=== PATIENT | female | born 1965 | race Caucasian/White ===

== ENCOUNTER → 2016-07-07 | Outpatient (CLI) | payer BC | LOC: PREOP 05:38 | PROVIDERS: ATTEND Internal Medicine | DX: Z01.818 Encounter for other preprocedural examination (principal); Z12.11 Encounter for screening for malignant neoplasm of colon ==

== ENCOUNTER 2016-07-09 07:08 | Day surgery (SDC) | payer BC ==
[~2016-07-09] VITALS: Ht 160 cm; Wt 59.9 kg
--- NOTE | 2016-07-09 07:25 | HISTORY AND PHYSICAL ---
DATE OF ADMISSION: 07/09/2016 DICTATING PHYSICIAN: Dr. Myers COLONOSCOPY HISTORY AND PHYSICAL: Ms. Fisher is a 51-year-old white female referred by Dr. Sandoval for screening colonoscopy. She reports that her brother at the age of 53 had surgery for what she believes was a large colon polyp that did not belt turner to be malignant. There is no other known family history for colon cancer. She reports rare episodes small amount of bright red blood on the toilet paper after the passage of a large stool. This only happens rarely. She has had no recent change in bowel habits. She reports that her weight is stable and that she feels well. PAST MEDICAL HISTORY: Significant for left-sided ureterolithiasis in 2006. She takes no medications and has had no known recurrence of kidney stones. PAST SURGICAL HISTORY: She has had several breast biopsies for benign tumors the last one was 16 years ago. 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 FAMILY HISTORY: Brother as noted above well. Father at the age of 34 of a brain aneurysm and she is not aware of any other family history for aneurysms. Mother at the age of 80 from complications from Parkinson's disease. PHYSICAL EXAMINATION: Reveals a pleasant normal weight white female, appears to be in no acute distress. VITAL SIGNS: Blood pressure was 116/84 with a heart rate of 72 and regular. HEENT EXAMINATION: Unremarkable. NECK: Revealed no JVD, adenopathy or bruits. She has a Mallampati class I oropharyngeal configuration. CHEST: Clear. CV: Reveals regular rate and rhythm without murmur, S3 or S4. ABDOMEN: Soft, supple without masses, organomegaly or tenderness. EXTREMITIES: Reveal no cyanosis, clubbing, or edema. ASSESSMENT: The patient was set-up for a screening colonoscopy on 07/09 after discussing the rationale behind screening procedures. Questions were answered and prep instructions and prescriptions were given. I thank you for the referral of this pleasant lady. Sincerely, Job ID: [id number] Dictated Date: 06/28/2016 17:46:00 History Card Clerk Date: 06/29/2016 08:10:15/tbk
[2016-07-09] MEDS ORDERED: 1/2 NS IV SOLUTION 1,000 ML IV ONE ×2 (07:36→07:45)
--- NOTE | 2016-07-09 07:44 | Pre-Op Note & Conscious Sedat ---
Pre-Operative Progress Note H&P Reviewed The H&P was reviewed, patient examined and no changes noted. Date H&P Reviewed: Jul 09, 2016 Time H&P Reviewed: 07:44 Conscious Sedation Pre-Proced ASA Class: 1 Airway Mallampati Classification: (manzanita appropriate class) I. II. III, IV Lungs Heart ASA score ASA 1: a normal healthy patient ASA 2: a patient with a mild systemic disease (mid diabetes, controlled hypertension, obesity ASA 3: a patient with a severe systemic disease that limits activity (angina , COPD, prior Myocardial infarction) ASA 4: a patient with an incapacitating disease that is a constant threat to life (CHF, renal failure) ASA 5: a moribund patient not expected to survive 24 hrs. (ruptured aneurysm) ASA 6: a declared brain patient whose organs are being harvested. For emergent operations, add the letter E after the classification Grade 1 Sedation Plan: Analgesia, Amnesia, Plan communicated to team members, Discussed options with patient/fam, Discussed risks with patient/fam Note The patient is an appropriate candidate to undergo the planned procedure, sedation, and anesthesia. The patient immediately re-assessed prior to indication. DINA MUSTAFA MD Jul 09, 2016 07:44
[2016-07-09] MEDS ORDERED: LIDOCAINE JELLY 2% (XYLOCAINE) 5 ML TUBE TOP ONE (07:45)
[2016-07-09] MEDS ORDERED: NALOXONE 0.4 MG/ML 1 ML (NARCAN) VIAL IV ONE (07:45)
[2016-07-09] MEDS ORDERED: FLUMAZENIL (ROMAZICON) 0.1 MG/ML 5 ML VIAL IV ONE (07:45)
[2016-07-09 07:48] VITALS: BP 128/80
[2016-07-09] MEDS ORDERED: LIDOCAINE JELLY 2% (XYLOCAINE) 5 ML TUBE ONE (08:18)
[2016-07-09] MEDS ORDERED: fentaNYL INJECTION 100 MCG/2 ML AMP ONE ×2 (08:18→08:39)
[2016-07-09] MEDS ORDERED: MIDAZOLAM 2 MG/2 ML (VERSED) VIAL ONE ×2 (08:19→08:39)
[2016-07-09] MEDS: fentaNYL INJECTION 100 MCG/2 ML AMP IVP PRN ×4 (08:25→08:44)
[2016-07-09] MEDS: MIDAZOLAM 2 MG/2 ML (VERSED) VIAL IVP PRN ×3 (08:26→09:33)
[2016-07-09 09:20] VITALS: BP 107/76
[2016-07-09 09:55] VITALS: BP 108/74
[2016-07-09 10:15] VITALS: BP 108/74
--- NOTE | 2016-07-12 10:04 | PROCEDURE REPORT ---
PROCEDURE PHYSICIAN: DINA MUSTAFA DATE OF PROCEDURE: 07/09/2016 COLONOSCOPY SUMMARY: INDICATION FOR THE PROCEDURE: Screening colonoscopy. PROCEDURE: The patient was placed in the left lateral decubitus position. Prior to going colonoscopy, digital rectal evaluation was performed. Anal sphincter tone was normal and the perianal reflex was intact. No abnormalities were noted to digital inspection of the anal canal or distal rectal vault. The colonoscope was then inserted into the rectum and under visualization, advanced to the cecum. The cecum was identified by identification of the ileocecal valve and cecal strap. Photographic documentation of was obtained. Careful inspection was made as the colonoscope was withdrawn. FINDINGS: There was no evidence for internal or external hemorrhoids. There was a small area of inflammation versus vascular malformation with a small amount of oozing noted in the mid rectum. The lesion was biopsied and ablated, with no subsequent blood loss and submitted for histopathology. No overt evidence for neoplasia was noted. The remainder of the colonoscopy was normal. No diverticulum or further evidence for vascular malformation was noted. ASSESSMENT: One likely small vascular malformation was noted in the rectum, biopsy and cauterization was performed for hemorrhage control using hot forceps. This was an otherwise normal colonoscopy to the cecum. As long as there are no surprises on histopathology report, as the patient does have a family history for colon polyps, would advocate consideration for repeat screening colonoscopy in 5 years. I thank you for the referral of this pleasant lady. Sincerely, Job ID: [id number] Dictated Date: 07/09/2016 10:51:31 Customs And Immigration Officer Date: 07/12/2016 09:58:31 / jazmine SIGALA
== END 2016-07-09 10:15 | disposition home or self-care (01) ==
LOC: ENDO 07:08
PROVIDERS: ATTEND Internal Medicine
DX: Z12.11 Encounter for screening for malignant neoplasm of colon (principal); K55.20 Angiodysplasia of colon without hemorrhage
CPT/HCPCS: 84703; 88305

== ENCOUNTER → 2016-12-28 | Outpatient (CLI) | payer BC ==
--- NOTE | 2016-12-28 13:08 | Diagnostic Imaging Report ---
INDICATION: Lower extremity pain and neuropathy. AP and lateral views of the lumbar spine are obtained. FINDINGS: Lumbar spinal curvature and alignment are within normal limits. Vertebral body heights and disc spaces are maintained. There is sclerosis about the L5-S1 facet joints. IMPRESSION: L5-S1 degenerative facet arthropathy without acute abnormality identified. Dictated by: Dictated on workstation # [id number]
== END ==
LOC: RAD 11:38
PROVIDERS: ATTEND Family Medicine
DX: M47.816 Spondylosis without myelopathy or radiculopathy, lumbar region (principal)
CPT/HCPCS: 72100

== ENCOUNTER → 2017-09-08 | Outpatient (CLI) | payer BC ==
--- NOTE | 2017-09-08 17:44 | Diagnostic Imaging Report ---
EXAMINATION: Pelvic ultrasound. INDICATION: Enlarged uterus. COMPARISON: There are no prior studies available for comparison. FINDINGS: The uterus is enlarged measuring 11.3 x 6.4 x 8.5 cm. There are two hypoechoic masses involving the uterine body/fundus. The larger of these measures 6.4 x 4.9 x 6.4 cm. The other mass is located in the fundus and measures 4.2 x 3.0 x 4.8 cm. Most likely, these are related to uterine fibroids. The endometrial lining was not well visualized but does seem to be slightly thickened measuring 8 mm (normal 5 mm or less). This finding is nonspecific. Correlation with the patient's menstrual cycle would be recommended. If the patient is postmenopausal, then hysteroscopy should be considered for further study. The ovaries were not well visualized, but there does appear to be a 1.9 cm cyst in the right adnexa. This is probably arising from the right ovary. There is no solid pelvic mass or free fluid collection noted. IMPRESSION: 1. The uterus is enlarged and appears to contain at least two sizable fibroids. 2. The endometrial lining is slightly thickened. This finding is nonspecific. Considerations and recommendations as above. 3. There is a small roughly 2 cm right ovarian cyst. 4. There is no acute pelvic abnormality noted. Dictated by: Dictated on workstation # [id number]
--- NOTE | 2017-09-09 14:31 | Diagnostic Imaging Report ---
Procedure: Digital mammogram. Indication: Bilateral screening. Comparison: The study was compared to prior exams of 04/28/2016 and 06/05/2014. At this time there are no current complaints. The current study was also evaluated with a Computer Aided Detection (CAD) system. FINDINGS: The fibroglandular tissue in both breasts is heterogeneously dense. This does limit the sensitivity of this exam. Overall, there does not appear to have been any significant change when compared to the prior study. No primary or secondary sign of malignancy is noted. IMPRESSION: 1. There is no radiographic evidence for malignancy. 2. The patient should have her annual screening mammogram on schedule in August of 2018. ACR BI-RADS Category 1: Negative. Result letter will be mailed to the patient. Note: At least 10% of breast cancer is not imaged by mammography. Dictated on workstation # [id number]
== END ==
LOC: RAD 14:15
PROVIDERS: ATTEND Nurse Practitioner
DX: Z12.31 Encounter for screening mammogram for malignant neoplasm of breast (principal); N85.2 Hypertrophy of uterus; N85.8 Other specified noninflammatory disorders of uterus
CPT/HCPCS: 76830; 76856; 77067

== ENCOUNTER 2017-10-24 08:40 | Outpatient (CLI) | payer BC ==
[~2017-10-24] VITALS: Ht 160 cm; Wt 63.5 kg
[2017-10-24 09:09] VITALS: BP 129/82
[2017-10-24] MEDS ORDERED: CYAN10006 PO (09:12)
[2017-10-24 09:39] LABS: BASOPHILS % (AUTO) 1 % (0-10); EOSINOPHILS # (AUTO) 0.3 10^3/uL (0.0-0.3); EOSINOPHILS % (AUTO) 5 % (0-10); HEMATOCRIT 30 % (35-52); HEMOGLOBIN 9.4 G/DL (11.5-16.0); LYMPHOCYTES # (AUTO) 1.9 X 10^3 (1.0-4.0); LYMPHOCYTES % (AUTO) 34 % (12-44); MEAN CORPUSCULAR HEMOGLOBIN 26 PG (25-34); MEAN CORPUSCULAR HGB CONC 31 G/DL (32-36); MEAN CORPUSCULAR VOLUME 84 FL (80-99); MEAN PLATELET VOLUME 9.6 FL (7.4-10.4); MONOCYTES # (AUTO) 0.4 X 10^3 (0.0-1.0); MONOCYTES % (AUTO) 7 % (0-12); NEUTROPHILS % (AUTO) 53 % (42-75); PLATELET COUNT 411 10^3/uL (130-400); RED BLOOD COUNT 3.62 10^6/uL (4.35-5.85); WHITE BLOOD COUNT 5.7 10^3/uL (4.3-11.0)
[2017-10-28] MEDS ORDERED: HYDR-34 PO (09:56)
[2017-10-28] MEDS ORDERED: SIME80TA16 PO (09:56)
[2017-10-28] MEDS ORDERED: DOCU100C37 PO (09:56)
[2017-10-28] MEDS ORDERED: IBUP-844 PO (09:56)
== END 2017-10-24 09:33 | disposition home or self-care (01) ==
LOC: PREOP 08:40
PROVIDERS: ATTEND Obstetrics & Gynecology
DX: Z01.812 Encounter for preprocedural laboratory examination (principal); Z11.2 Encounter for screening for other bacterial diseases; D25.9 Leiomyoma of uterus, unspecified; R10.2 Pelvic and perineal pain
CPT/HCPCS: 36415; 85025; 86850; 86900; 86901; 87081

== ENCOUNTER 2017-10-28 06:16 | Day surgery (SDC) | payer BC ==
[~2017-10-28] VITALS: Ht 160 cm; Wt 63.5 kg
[~2017-10-28 06:16] MED LIST: CYAN10006 PO
[2017-10-28] MEDS ORDERED: LACTATED RINGERS 1,000 ML IV ONE (06:21)
[2017-10-28] MEDS ORDERED: LACTATED RINGERS 1,000 ML IV PRN (06:21)
[2017-10-28] MEDS ORDERED: ceFAZolin INJECTION 1,000 MG in NS (IVPB) 50 ML IV ONE (06:30)
[2017-10-28] MEDS ORDERED: metroNIDAZOLE 500MG/100ML IVPB 100 ML IV ONE (06:30)
[2017-10-28] MEDS ORDERED: MIDAZOLAM 2 MG/2 ML (VERSED) VIAL ONE (06:52)
[2017-10-28] MEDS ORDERED: ONDANSETRON 4 MG/2 ML (SDV) Z0FRAN ONE (06:52)
[2017-10-28] MEDS ORDERED: ROCURONIUM 10 MG/ML 5 ML SYRINGE IV ONE (06:52)
[2017-10-28] MEDS ORDERED: NEOSTIGMINE 1 MG/ML 5 ML SYRINGE ONE (06:52)
[2017-10-28] MEDS ORDERED: GLYCOPYRROLATE 0.2 MG/ML (ROBINUL) 2 ML VIAL ONE (06:52)
[2017-10-28] MEDS ORDERED: SEVOFLURANE (ULTANE) 15 ML INHAL SOLN ONE ×4 (06:52→09:38)
[2017-10-28] MEDS ORDERED: fentaNYL INJECTION 100 MCG/2 ML AMP ONE (06:52)
[2017-10-28] MEDS ORDERED: DEXAMETHASONE 10 MG/ML (DECADRON) 1 ML VIAL ONE (06:52)
[2017-10-28] MEDS ORDERED: proPOfol 200 MG/20 ML (DIPRIVAN) VIAL IV ONE (06:52)
[2017-10-28] MEDS ORDERED: LIDOCAINE PF 2% 5 ML (XYLOCAINE) VIAL ONE (06:52)
[2017-10-28] MEDS ORDERED: BUPIVACAINE 0.25% 30 ML (SENSORCAINE) VIAL ONE (06:56)
--- NOTE | 2017-10-28 07:14 | Progress Note-Pre Operative ---
Pre-Operative Progress Note H&P Reviewed The H&P was reviewed, patient examined and no changes noted. Date Seen by Provider: October 28, 2017 Time Seen by Provider: 07:05 Date H&P Reviewed: October 28, 2017 Time H&P Reviewed: 07:05 Pre-Operative Diagnosis: Fibroid uterus, Pelvic pressure, Acute blood loss anemia ROBERT PICKERING DO October 28, 2017 07:14
[2017-10-28] MEDS ORDERED: morphine INJ 10 MG/ML 1ML (SYR OR VIAL) IVP PRN (07:30)
[2017-10-28] MEDS ORDERED: HYDROmorphone 1 MG/ML (DILAUDID) 1 ML SYRINGE IV PRN ×2 (07:30→09:45)
[2017-10-28] MEDS ORDERED: ONDANSETRON 4 MG/2 ML (SDV) Z0FRAN IVP PRN (07:30)
[2017-10-28] MEDS ORDERED: ESTRADIOL VAGINAL CREAM 42.5 GM (ESTRACE) VG ONE (09:22)
[2017-10-28] MEDS ORDERED: CHLORASEPTIC LOZENGE MM PRN (09:45)
[2017-10-28] MEDS ORDERED: DOCUSATE SODIUM 100 MG (COLACE) CAP PO PRN (09:45)
[2017-10-28] MEDS ORDERED: ONDANSETRON 4 MG/2 ML (SDV) Z0FRAN IV PRN (09:45)
[2017-10-28] MEDS ORDERED: ZOLPIDEM 5 MG (AMBIEN) TAB PO PRN (09:45)
[2017-10-28] MEDS ORDERED: HYDROcodone/APAP 7.5 MG/325 MG (LORTAB, LORCET PLUS) TABLET PO PRN (09:45)
[2017-10-28] MEDS ORDERED: SIMETHICONE 80 MG (MYLICON) CHEW PO PRN (09:45)
[2017-10-28] MEDS ORDERED: ANTACID SUSP 30 ML UDC (MYLANTA) PO PRN (09:45)
[2017-10-28] MEDS ORDERED: IBUP-844 PO (09:56)
[2017-10-28] MEDS ORDERED: HYDR-34 PO (09:56)
[2017-10-28] MEDS ORDERED: SIME80TA16 PO (09:56)
[2017-10-28] MEDS ORDERED: DOCU100C37 PO (09:56)
--- NOTE | 2017-10-28 09:57 | Discharge Inst-Women's Service ---
Discharge Inst-Women's Serv Depart Medication/Instructions New, Converted or Re-Newed RX: RX on Chart Consults/Follow Up Additional Follow Up: Yes Orders/Referrals Dr. Agee in 7-10 days and in 8 weeks Activity Activity: Activity as Tolerated Driving Instructions: No Driving for 1 Week NO SMOKING: NO SMOKING Nothing Inside Vagina: No Douching, No [place], No Tampons Diet Discharge Diet: No Restrictions Symptoms to Report to : Bleeding Excessive, Pain Increased, Fever Over 101 Degrees F, Vaginal Bleeding Increase, Questions/Concerns For Any Problems or Questions: Contact Your Physician Skin/Wound Care Infection Signs and Symptoms: Increased Redness, Foul Odor of Wound, Increased Drainage, Skin Itchy or Has a Rash, Increased Swelling, Temperature Above 101 F Operative Area Clean and Dry: Keep Incision Clean/Dry Stitches/Christine/Dermabond: Dermabond, Care of Stitches Bathing Instructions: ROBERT Ireland DO October 28, 2017 9:57 am
[2017-10-28] MEDS ORDERED: KETOROLAC 30 MG/ML VIAL ONE (10:04)
[2017-10-28] MEDS: KETOROLAC 30 MG/ML VIAL IV PRN ×2 (10:11→17:50)
[2017-10-28 11:00] VITALS: BP 106/70
[2017-10-28] MEDS: LACTATED RINGERS 1,000 ML IV SCH ×2 (12:20→19:56)
--- NOTE | 2017-10-28 14:13 | Anesthesia-General Post-Op ---
General Patient Condition Mental Status/LOC: Same as Preop Cardiovascular: Satisfactory Nausea/Vomiting: Absent Respiratory: Satisfactory Pain: Controlled Complications: Absent Post Op Complications Complications None Follow Up Care/Instructions Patient Instructions None needed. Anesthesia/Patient Condition Patient Condition Patient is doing well, no complaints, stable vital signs, no apparent adverse anesthesia problems. No complications reported per nursing. D/C home per [facility] [place] Criteria: No RADHA MELENDEZ CRNA October 28, 2017 14:13
[2017-10-28 17:48] VITALS: BP 106/74
--- NOTE | 2017-10-28 20:27 | OPERATIVE REPORT ---
DATE OF SERVICE: PREOPERATIVE DIAGNOSES: 1. A 52-year-old female with enlarged uterus and multiple uterine fibroids. 2. Pelvic pressure and urinary retention. 3. Chronic blood loss anemia. POSTOPERATIVE DIAGNOSES: 1. A 52-year-old female with enlarged uterus and multiple uterine fibroids. 2. Pelvic pressure and urinary retention. 3. Chronic blood loss anemia. PROCEDURE: Robotic assisted total laparoscopic hysterectomy with bilateral salpingectomy, measuring 440 grams. SURGEON: Percy Agee DO MARKETING EFFECTIVENESS MANAGER: RAFAEL Gallardo ANESTHESIA: General endotracheal. ESTIMATED BLOOD LOSS: 250 mL. URINE OUTPUT: 50 mL clear at the end of procedure. FLUIDS: 1500 mL lactated Ringer's solution. FINDINGS: A bulky enlarged uterus measuring over 400 grams, grossly normal appearing bilateral ovaries and fallopian tubes, multiple incidental lacerations of the vaginal mucosa with removal of the uterus. SPECIMENS SENT: Uterus, bilateral fallopian tubes. INDICATIONS FOR PROCEDURE: This 52-year-old female is a consultation in my office from our nurse practitioner for ongoing issues with pelvic pressure which was getting worse with finding of fibroids on ultrasound. The patient was also found to be anemic at that point. She is wishing to proceed with definitive treatment options. 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 She would prefer to approach this minimally invasively. We discussed robotic assisted total laparoscopic hysterectomy. Risks of the procedure were discussed with the patient in detail including risks of bleeding, infection, damage to surrounding structures including but not limited to bowel, bladder, ureter and kidney. Possible need for reoperation was discussed. We also discussed possibility of laparotomy. After of all of her questions were answered, consent was obtained in the preoperative area. The patient was taken to the operating room. OPERATIVE REPORT IN DETAIL: Once in the operating room, general anesthesia was found to be adequate, placed in dorsal lithotomy position, prepped and draped in normal sterile fashion. A weighted speculum was inserted to the patient's vagina after a Lopez catheter was placed using sterile technique. A right angle retractor was used to visualize the cervix. A 0 Vicryl suture was placed to anterior lip of the cervix and used this as my retraction point and then I am able to sound the uterine cavity, depth was found to be 10 cm. I then selected a 4 cm colpotomy ring and a 10 cm uterine manipulator tip and assembled the Vanessa and placed the manipulator tip within the endometrial cavity, deploying the balloon. I then advanced the colpotomy ring around the vaginal fornix and removed all the other instruments from the patient's vagina. I then performed a change of gloves taking my attention to the abdomen where supraumbilically I infiltrated this area using 0.25% Marcaine, making an 8 mm incision and directed the Veress needle through this incision until intraperitoneal placement was confirmed using the saline drop test. I then proceeded with insufflation using CO2 gas and opening pressure of 4 mmHg was noted. I proceeded to a maximum pressure of 15 mmHg, at which point I removed the Veress needle and introduced an 8 mm blunt da Julianne camera trocar. Once this was in place, I am able to confirm all of my findings as listed in my findings above. I then placed the patient in steep Trendelenburg and I am able to visualize everything that I need to proceed with the procedure. I then placed two lateral trocars. These were both 8 mm trocars approximately 8 to 10 cm lateral to my supraumbilical trocar. Once these were in place, I bring in the da Julianne robot and docked in the appropriate fashion and I placed the vessel sealer in my left hand and monopolar deann in my right hand. I then performed the following dissection bilaterally. I grasped the uteroovarian ligament, bipolar cauterized and transected using the vessel sealer. I created a window in the mesosalpinx and took this laterally using the vessel sealer the fallopian tube from its surrounding blood supply. I then grasped the round ligament. I bipolar cauterized and transected using the vessel sealer. I was then able to grasp the entire broad ligament, bipolar cauterizing and transecting this using the vessel sealer down to the level of the lower uterine segment, at which point I the anterior and posterior leaflets. The anterior leaflet dissection was taken down to the anterior vaginal fornix. The posterior leaflet was taken around to the posterior vaginal fornix. This allows me to skeletonize the uterine vessels laterally which I bipolar cauterized using the vessel sealer and transected using the vessel sealer. I then performed a colpotomy at the 12 o'clock position on the colpotomy ring and took this circumferentially around the vaginal fornix using monopolar deann the cervix from the vagina, at which point I then had to remove the entire specimen through the vagina which incidentally causes a lateral vaginal sidewall laceration. I recognized this after I complete the laparoscopic portion of the case. I first proceed with closing the vagina and the lateral vaginal apices using 2-0 Vicryl suture in a ypzmey-ys-thgau fashion, coloposuspending them to the uterosacral ligaments. I then closed the remainder of the vaginal cuff using 2-0 V-Loc in a running fashion. I then undocked the da Julianne robot and proceeded with the remainder of the case laparoscopically by copiously irrigating the pelvis using normal saline. There is no active bleeding noted from my internal dissection planes. I then placed FloSeal hemostatic agent over all my planes of dissection. I had the patient taken out of steep Trendelenburg and the trocars were then removed and insufflation was removed in this manner as well. The skin was then closed using 4-0 Monocryl in interrupted subcuticular stitches and Dermabond was placed over these and Band-Aids were placed over the incisions as well. I then took my attention to the vagina whether there are bilateral lateral side wall lacerations, which were repaired using 3-0 Vicryl suture in a running locked fashion. There was also a perineal laceration which is also closed using 3-0 Vicryl suture in a running fashion, after which hemostasis was noted from any of these. I then packed the vagina using vaginal packing, soaked in Premarin cream. A Lopez catheter was left in place. Lap and sponge counts were correct at the end of the procedure. Instrument counts were correct as well. One gram of Ancef and 500 mg of Flagyl were given preoperatively for infection prophylaxis. Job ID: [id number] DocumentID: [id number] Dictated Date: 10/28/2017 11:06:46 Training And Quality Manager Date: 10/28/2017 18:14:21 Dictated By: DO ZAKIYA HARVEY
[2017-10-28 22:57] VITALS: BP 100/69
[2017-10-29] MEDS: KETOROLAC 30 MG/ML VIAL IV PRN (00:02)
[2017-10-29 00:05] VITALS: BP 105/64
[2017-10-29] MEDS ORDERED: IBUPROFEN 600 MG (MOTRIN) TAB PO PRN (02:15)
[2017-10-29 04:10] VITALS: BP 102/60
[2017-10-29 08:00] VITALS: BP 108/73
--- NOTE | 2017-10-29 10:59 | Anesthesia-General Post-Op ---
General Patient Condition Mental Status/LOC: Same as Preop Cardiovascular: Satisfactory Nausea/Vomiting: Absent Respiratory: Satisfactory Pain: Controlled Complications: Absent Post Op Complications Complications None Follow Up Care/Instructions Patient Instructions None needed. Anesthesia/Patient Condition Patient Condition Patient is doing well, no complaints, stable vital signs, no apparent adverse anesthesia problems. No complications reported per nursing. [place] [facility] [place]: SARA hC CRNA October 29, 2017 10:59
[2017-10-29 12:00] VITALS: BP 136/84
== END 2017-10-29 12:35 | disposition home or self-care (01) ==
LOC: SDC 06:16 → WS 10:49 → SDC 10-29 12:35
PROVIDERS: ATTEND Obstetrics & Gynecology
DX: N85.2 Hypertrophy of uterus (principal); D25.1 Intramural leiomyoma of uterus; N80.0 Endometriosis of uterus; N87.9 Dysplasia of cervix uteri, unspecified; N72 Inflammatory disease of cervix uteri; D50.0 Iron deficiency anemia secondary to blood loss (chronic); R33.9 Retention of urine, unspecified; R10.2 Pelvic and perineal pain; N99.71 Accidental puncture and laceration of a genitourinary system organ or structure during a genitourinary system procedure
CPT/HCPCS: 36415; 84703; 86850; 86900; 86901; 88307; 94664

== ENCOUNTER → 2018-10-31 | Outpatient (CLI) | payer BC ==
[~2018-10-31] MED LIST changes: +DOCU100C37 PO; +HYDR-34 PO; +IBUP-844 PO; +SIME80TA16 PO
--- NOTE | 2018-10-31 13:15 | Diagnostic Imaging Report ---
Indication: Routine screening. Comparison is made with prior mammogram from 09/08/2017 and 04/28/2016. 2-D and 3-D bilateral screening mammography was performed CAD. Both breasts are heterogeneously dense, limiting the sensitivity of mammography. The parenchymal pattern is stable. No mass or malignant appearing microcalcifications are seen. There are benign calcifications noted. Exhilarated remarkable. Impression: BI-RADS category 2 No mammographic features suspicious for malignancy are identified. Dictated by: Dictated on workstation # [id number]
== END ==
LOC: RAD 09:38
PROVIDERS: ATTEND Obstetrics & Gynecology
DX: Z12.31 Encounter for screening mammogram for malignant neoplasm of breast (principal)
CPT/HCPCS: 77067

== ENCOUNTER 2019-10-23 13:00 | Outpatient (RCR) | payer BC ==
[~2019-10-23] VITALS: Ht 160 cm; Wt 65.9 kg
[~2019-10-23 13:00] MED LIST changes: +CYAN-41 PO; -CYAN10006 PO
== END 2019-10-23 13:30 | disposition home or self-care (01) ==
LOC: PREOP 13:00
PROVIDERS: ATTEND Internal Medicine
DX: Z01.818 Encounter for other preprocedural examination (principal); Z11.59 Encounter for screening for other viral diseases
CPT/HCPCS: 87635

== ENCOUNTER 2019-10-26 08:59 | Day surgery (SDC) | payer BC ==
--- NOTE | 2019-10-23 14:13 | HISTORY AND PHYSICAL ---
DATE OF SERVICE: COLONOSCOPY HISTORY AND PHYSICAL HISTORY OF PRESENT ILLNESS: The patient is a 54-year-old white female referred for diagnostic colonoscopy due to history of rectal bleeding by Dr. Sandoval. She reports while walking roughly 2 weeks ago, had bowel urgency when she got home, she passed a large amount of bright red blood per rectum. She has had blood streaked stool with intermittent bleeding and urgency on 3 or 4 occasions since the last was 4 days ago. She denies any associated pain and no interval bowel habit change. I performed screening colonoscopy on her little over 3 years ago, at which time she was noted to have rectal angiodysplastic lesion that was cauterized. She had no evidence for neoplasia at that time. She does have a brother at the age of 53. He has had several colon polyps removed, but she is not aware of any family history for colon cancer. PAST SURGICAL HISTORY: Significant for breast biopsy 16 years ago that was benign. She had hysterectomy for benign reasons in 10/[address] Agee. She is currently taking no medication. PAST MEDICAL HISTORY: She has had history of B12 deficiency, although she is currently taking [id number] B12 supplement with reportedly normal levels. FAMILY HISTORY: As stated above. In addition, father of complications of a brain aneurysm at the age of 34. Mother of complications of Parkinson's disease at the age of 80 and one brother with reported history of colon polyps, now 56 years of age. 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 REVIEW OF SYSTEMS: CONSTITUTIONAL: She denies night sweats, chills, fever or change in weight. GASTROINTESTINAL: As noted in the HPI. CARDIOVASCULAR: She denies chest pain, palpitations, syncope or presyncope. No orthopnea, PND or pedal edema. PULMONARY: She denies pleuritic chest pain or shortness of breath or cough. PHYSICAL EXAMINATION: GENERAL: Reveals a white female, appeared to be in no acute distress. VITAL SIGNS: Weight was 145 pounds, up 9 pounds from her last office weight in 06/2016, blood pressure 130/80. HEENT: Unremarkable, conjunctivae revealed no evidence for pallor. No evidence for scleral icterus was noted. CHEST: Clear to auscultation. CARDIOVASCULAR: Reveals a regular rate and rhythm without murmur, S3 or S4. Oral cavity reveals Mallampati 2 pharyngeal configuration. No erythema or exudate. ABDOMEN: Soft, supple without mass, organomegaly or tenderness. Bowel sounds positive. No bruits are noted. EXTREMITIES: Reveal no cyanosis, clubbing or edema. No evidence for telangiectasia noted on skin evaluation. ASSESSMENT AND PLAN: The patient was set up for diagnostic colonoscopy for intermittent bright red blood per rectum. Discussed likelihood of recurrent angiodysplasia, which would likely continue to rebleed versus internal hemorrhoid. Prep instructions were given with the Suprep and questions were answered. I thank you for the referral of this pleasant lady. Job ID: [id number] DocumentID: [id number] Dictated Date: 10/18/2019 15:54:16 Air Export Operations Agent Date: 10/18/2019 16:15:57 Dictated By: DINA MUSTAFA MD
[2019-10-26] VITALS (17 sets, daily range): BP systolic 107–131; BP diastolic 63–88
[~2019-10-26] VITALS: Ht 160 cm; Wt 65.9 kg
[2019-10-26] MEDS ORDERED: D5 LR IV SOLUTION 1,000 ML IV ONE (09:03)
[2019-10-26] MEDS ORDERED: LIDOCAINE JELLY 2% 6 ML SYRINGE MM PRN (09:15)
[2019-10-26] MEDS ORDERED: D5 LR IV SOLUTION 1,000 ML IV PRN (09:15)
[2019-10-26] MEDS ORDERED: fentaNYL INJECTION 100 MCG/2 ML AMP IVP ONE (09:15)
[2019-10-26] MEDS ORDERED: MIDAZOLAM 5 MG/5 ML (VERSED) VIAL ONE (09:33)
[2019-10-26] MEDS ORDERED: fentaNYL INJECTION 100 MCG/2 ML AMP ONE ×2 (09:34)
[2019-10-26] MEDS ORDERED: LIDOCAINE JELLY 2% 6 ML SYRINGE ONE (09:34)
--- NOTE | 2019-10-26 09:46 | Pre-Op Note & Conscious Sedat ---
Pre-Operative Progress Note H&P Reviewed The H&P was reviewed, patient examined and no changes noted. Date H&P Reviewed: October 26, 2019 Time H&P Reviewed: 09:40 Conscious Sedation Pre-Proced ASA Score 2 For ASA 3 and 4: Consider anesthesia and medical clearance. Also, for patients with a history of failed moderate sedation consider anesthesia. Airway Lungs Heart ASA score ASA 1: a normal healthy patient ASA 2: a patient with a mild systemic disease (mid diabetes, controlled hypertension, obesity ASA 3: a patient with a severe systemic disease that limits activity (angina, COPD, prior Myocardial infarction) ASA 4: a patient with an incapacitating disease that is a constant threat to life (CHF, renal failure) ASA 5: a moribund patient not expected to survive 24 hrs. (ruptured aneurysm) ASA 6: a declared brain- patient whose organs are being harvested. For emergent operations, add the letter E after the classification Mallampati Classification Grade 2 Sedation Plan Analgesia, Amnesia, Plan communicated to team members, Discussed options with patient/fam, Discussed risks with patient/fam The patient is an appropriate candidate to undergo the planned procedure, sedation, and anesthesia. The patient immediately re-assessed prior to indication. DINA MUSTAFA MD October 26, 2019 09:46
[2019-10-26] MEDS: MIDAZOLAM 5 MG/5 ML (VERSED) VIAL IV PRN ×2 (09:50→09:58)
--- NOTE | 2019-10-26 16:56 | OPERATIVE REPORT ---
DATE OF SERVICE: COLONOSCOPY SUMMARY INDICATION FOR THE PROCEDURE: Rectal bleeding. DESCRIPTION OF PROCEDURE: The patient was placed in the left lateral decubitus position. Prior to undergoing colonoscopy, digital rectal evaluation was performed. Anal sphincter tone was normal and the perianal reflexes intact. No abnormalities on digital inspection of anal canal or distal rectal vault. The colonoscope was then inserted into the rectum and under direct visualization advanced to cecum. The cecum was identified by identification of the valve and cecal strap muscles appendiceal orifice. Quality of prep was good. The patient tolerated the procedure well. FINDINGS: There was no evidence for internal or external hemorrhoids. There were several small areas of distal rectal telangiectasia again without evidence for overt hemorrhoid formation. No evidence for blood was noted in the colon. No underlying inflammatory change was noted in the rectum or the remainder of the colon. The sigmoid colon was unremarkable. No evidence for diverticular disease was noted. The descending colon, splenic flexure, transverse colon, hepatic flexure, ascending colon and cecum were unremarkable as well. ASSESSMENT: Several small areas of telangiectasia noted in the distal rectum, likely source of this patient's bleeding. Patient reassured. It has been small volume. If the patient does have a significant increase in rectal bleeding, I would recommend repeat procedure with consideration for ablation. Otherwise, I would just recommend a repeat surveillance colonoscopy in 5 years due to past history of colon polyps. Thank you for the referral of this pleasant lady. Job ID: [id number] DocumentID: [id number] Dictated Date: 10/26/2019 10:55:00 [employer] Feeder Date: 10/26/2019 16:56:04 Dictated By: DINA MUSTAFA MD
== END 2019-10-26 11:15 | disposition home or self-care (01) ==
LOC: ENDO 08:59
PROVIDERS: ATTEND Internal Medicine
DX: K62.5 Hemorrhage of anus and rectum (principal); K62.89 Other specified diseases of anus and rectum; E53.8 Deficiency of other specified B group vitamins; Z90.710 Acquired absence of both cervix and uterus; Z83.71 Family history of colonic polyps

== ENCOUNTER → 2020-12-23 | Outpatient (CLI) | payer BC ==
--- NOTE | 2020-12-24 13:18 | Diagnostic Imaging Report ---
INDICATION: 2-D and 3-D digital screening with CAD. COMPARISON: 10/2018, 09/2017 and 04/2016 FINDINGS: A new density posterior right breast in the far inferior and far medial aspect has developed. Diagnostic views with spot compression in the CC and MLO orientation as well as a 90 degree mediolateral view recommended. At that time of diagnostic views targeted right breast ultrasound would likely be of benefit. The parenchymal pattern itself is heterogeneously dense which can limit mammographic sensitivity otherwise unchanged. Few benign calcifications persist. IMPRESSION: Ovoid density inferomedial right breast as a new finding. Diagnostic views and ultrasound recommended as further evaluation. BI-RADS Category 0 ACR BI-RADS Category 0: Incomplete. (Needs additional imaging evaluation). Result letter will be mailed to the patient. Note: At least 10% of breast cancer is not imaged by mammography. Dictated by: Dictated on workstation # [id number]
== END ==
LOC: RAD 14:45
PROVIDERS: ATTEND Obstetrics & Gynecology
DX: Z12.31 Encounter for screening mammogram for malignant neoplasm of breast (principal)
CPT/HCPCS: 77063; 77067

== ENCOUNTER → 2020-12-29 | Outpatient (CLI) | payer BC ==
--- NOTE | 2020-12-29 14:17 | Diagnostic Imaging Report ---
INDICATION: Right breast density. Patient presents for additional views. Correlation is made with screening mammogram from 12/23/2020. Unilateral right 2-D and 3-D diagnostic mammography was performed with CAD. This includes spot compression CC and ML views as well as conventional 90 degree lateral views. Additional views show persistent nodular density in the lower inner right breast approximately 6 images from the nipple. Further evaluation with ultrasound is recommended. IMPRESSION: BI-RADS 0 Persistent density lower inner right breast 6 cm from the nipple. Further evaluation with ultrasound is recommended and will be performed today. ACR BI-RADS Category 0: Incomplete. (Needs additional imaging evaluation). Result letter will be mailed to the patient. Note: At least 10% of breast cancer is not imaged by mammography. Dictated by: Dictated on workstation # [id number]
--- NOTE | 2020-12-29 16:30 | Diagnostic Imaging Report ---
INDICATION: Right breast nodule. COMPARISON: Correlation is made with the diagnostic mammogram from earlier this same day. FINDINGS: Sonographic interrogation of the lower inner right breast was performed. There is a hypoechoic lobulated nodule at the 3:30 location of the right breast 5 cm from the nipple with surrounding cystic areas. This measures 2.1 x 1.0 x 2.0 cm and likely accounts for the mammographic density. This lesion is indeterminate. This does show some internal vascularity. Tissue sampling is recommended. No other masses are identified. IMPRESSION: A lobulated partially cystic partially solid nodule at the 3:30 location of the right breast likely accounts for the mammographic density. This is indeterminate. Tissue sampling is recommended. This would be amenable to ultrasound-guided core biopsy. ACR BI-RADS Category 4: Suspicious abnormality. Dictated by: Dictated on workstation # [id number]
== END ==
LOC: RAD 13:45
PROVIDERS: ATTEND Obstetrics & Gynecology
DX: N60.01 Solitary cyst of right breast (principal)
CPT/HCPCS: 76642; 77065; G0279

== ENCOUNTER → 2021-01-07 | Outpatient (CLI) | payer BC ==
[~2021-01-07] VITALS: Ht 160 cm; Wt 66.4 kg
[~2021-01-07] MED LIST changes: +LIDOCAINE 1% INJ 20 ML 20 ML VIAL INJ ONE
--- NOTE | 2021-01-07 10:20 | Diagnostic Imaging Report ---
INDICATION: Right breast mass. Patient presents for ultrasound guided core biopsy. DETAILS OF THE PROCEDURE: The patient was brought to the sonographic suite and placed on the table in the supine position. Ultrasound imaging of the right breast was performed to evaluate for an appropriate entry site. The right breast was then prepped and draped in the usual sterile fashion. A small amount of 1% lidocaine was utilized for local anesthesia. A total of three core biopsies was made of the mixed solid and cystic mass at the 3:30 location of the right breast 5 cm from the nipple utilizing a 14-gauge Achieve needle. A marker clip was then deployed. Hemostasis was obtained using manual compression. The patient tolerated the procedure well and left the Department in stable condition. IMPRESSION: Successful ultrasound-guided core biopsy of the mixed echogenicity mass at the 3:30 location of the right breast 5 cm from the nipple. Pathology results are currently pending. Dictated by: Dictated on workstation # [id number]
--- NOTE | 2021-01-07 12:06 | Diagnostic Imaging Report ---
INDICATION: Status post right breast biopsy with ultrasound. Unilateral right 2-D and CC and ML mammography was performed after patient underwent right breast ultrasound-guided core biopsy. There is a biopsy clip adjacent to the lobulated density in the medial aspect of the right breast inferiorly, status post ultrasound biopsy. IMPRESSION: Appropriate clip location, status post ultrasound-guided right breast biopsy. Dictated by: Dictated on workstation # [id number]
== END ==
LOC: RAD 09:00
PROVIDERS: ATTEND Obstetrics & Gynecology
DX: N63.10 Unspecified lump in the right breast, unspecified quadrant (principal); Z98.890 Other specified postprocedural states
CPT/HCPCS: 19083; 77065; G0279

== ENCOUNTER → 2022-02-15 | Outpatient (CLI) | payer BC ==
[~2022-02-15] MED LIST changes: -LIDOCAINE 1% INJ 20 ML 20 ML VIAL INJ ONE
--- NOTE | 2022-02-15 14:29 | Diagnostic Imaging Report ---
INDICATION: Routine screening. COMPARISON: 12/23/2020 and 10/31/2018. TECHNIQUE: 2D and 3D bilateral screening mammography was performed with CAD. FINDINGS: Both breasts are heterogeneously dense, limiting the sensitivity of mammography. A biopsy marker clip in the lower inner right breast is noted. No new mass or malignant-appearing microcalcifications are seen. There are benign calcifications noted. The axillae are unremarkable. IMPRESSION: No mammographic features suspicious for malignancy are identified. ACR BI-RADS Category 2: Benign findings. Result letter will be mailed to the patient. Note: At least 10% of breast cancer is not imaged by mammography. Dictated by: Dictated on workstation # [id number]
== END ==
LOC: RAD 10:15
PROVIDERS: ATTEND Obstetrics & Gynecology
DX: Z12.31 Encounter for screening mammogram for malignant neoplasm of breast (principal)
CPT/HCPCS: 77063; 77067